=== PATIENT | female | born 1975 | race African-American/Black ===

== ENCOUNTER 2021-05-13 19:11 | Emergency (ER) | payer OTHER ==
[2021-05-13] MEDS ORDERED: ACETAMINOPHEN 500 MG TAB ONE (19:59)
[2021-05-13] MEDS ORDERED: FAMOTIDINE 20 MG TAB ONE (23:15)
[2021-05-13] MEDS ORDERED: AZITHROMYCIN 250 MG TAB ONE (23:15)
--- NOTE | 2021-05-13 23:15 | EDPHYS ---
Physician Documentation [facility] Name: Christine Jones Age: 45 yrs Sex: Female : 1975 Arrival Date: 05/13/2021 Time: 19:14 Bed DIS2 Private MD: ED Physician Marshall Ceron HPI: 05/13 23:08 This 45 yrs old Black Female presents to ER via Ambulatory with complaints of Cough, doyle Headache, Joint Pain. 23:08 The patient or guardian reports cough, difficulty breathing, flu symptoms, arthralgias, doyle low-grade fever, myalgias. Onset: The symptoms/episode began/occurred 2 day(s) ago. Severity of symptoms: At their worst the symptoms were mild, in the emergency department the symptoms are unchanged. Modifying factors: The symptoms are alleviated by nothing, the symptoms are aggravated by nothing. Associated signs and symptoms: The patient has no apparent associated signs or symptoms. The patient has experienced similar episodes in the past, a few times. 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 - Social history:: Smoking status: Patient reports the use of cigarette tobacco products, smokes one pack cigarettes per day. Patient uses alcohol, on a daily basis. ROS: 23:09 Constitutional: Negative for fever, chills, and weight loss, Eyes: Negative for injury, doyle pain, redness, and discharge, ENT: Negative for injury, pain, and discharge, Neck: Negative for injury, pain, and swelling, Abdomen/GI: Negative for abdominal pain, nausea, vomiting, diarrhea, and constipation, Back: Negative for injury and pain, : Negative for injury, bleeding, discharge, and swelling, MS/Extremity: Negative for injury and deformity, Skin: Negative for injury, rash, and discoloration, Neuro: Negative for headache, weakness, numbness, tingling, and seizure, Psych: Negative for depression, anxiety, suicide ideation, homicidal ideation, and hallucinations, Allergy/Immunology: Negative for hives, rash, and allergies, Endocrine: Negative for neck swelling, polydipsia, polyuria, polyphagia, and marked weight changes, Hematologic/Lymphatic: Negative for swollen nodes, abnormal bleeding, and unusual bruising. 23:09 Cardiovascular: Positive for palpitations. 23:09 Respiratory: Positive for cough, "sounds productive". Exam: 23:09 Constitutional: This is a well developed, well nourished patient who is awake, alert, doyle and in no acute distress. Head/Face: Normocephalic, atraumatic. Eyes: Pupils equal round and reactive to light, extra-ocular motions intact. Lids and lashes normal. Conjunctiva and sclera are non-icteric and not injected. Cornea within normal limits. Periorbital areas with no swelling, redness, or edema. ENT: Nares patent. No nasal discharge, no septal abnormalities noted. Tympanic membranes are normal and external auditory canals are clear. Oropharynx with no redness, swelling, or masses, exudates, or evidence of obstruction, uvula midline. Mucous membranes moist. Neck: Trachea midline, no thyromegaly or masses palpated, and no cervical lymphadenopathy. Supple, full range of motion without nuchal rigidity, or vertebral point tenderness. No Meningismus. Chest/axilla: Normal chest wall appearance and motion. Nontender with no deformity. No lesions are appreciated. Abdomen/GI: Soft, non-tender, with normal bowel sounds. No distension or tympany. No guarding or rebound. No evidence of tenderness throughout. Back: No spinal tenderness. No costovertebral tenderness. Full range of motion. Pelvic Exam: Normal external genitalia. Speculum exam with closed cervical os, no discharge or bleeding noted. Bimanual exam with normal adnexa, no adnexal or cervical motion tenderness. Normal uterus. Female : Normal external genitalia. Skin: Warm, dry with normal turgor. Normal color with no rashes, no lesions, and no evidence of cellulitis. MS/ Extremity: Pulses equal, no cyanosis. Neurovascular intact. Full, normal range of motion. Neuro: Awake and alert, GCS 15, oriented to person, place, time, and situation. Cranial nerves II-XII grossly intact. Motor strength 5/5 in all extremities. Sensory grossly intact. Cerebellar exam normal. Normal gait. 23:09 Cardiovascular: Rate: tachycardic, actual rate is 114 bpm, Rhythm: regular, Pulses: Pulses are 4+ in bilateral radial, brachial, femoral, popliteal, posterior tibial and and dorsalis pedis arteries.. Heart sounds: normal, normal S1and S2, no S3 or S4, no murmur, no rub, no gallop, Edema: is not appreciated, JVD: is not appreciated. Vital Signs: 19:54 BP 155 / 84; Pulse 114; Resp 18; Temp 101.7; Weight 74.84 kg; Height 5 ft. 4 in. ld1 (162.56 cm); Pain 3/10; 19:54 Body Mass Index 28.32 (74.84 kg, 162.56 cm) ld1 MDM: 21:37 Patient medically screened. doyle 23:11 Differential diagnosis: viral Infection, bacterial infection, URI, bronchitis, doyle pneumonia UTI. Differential Diagnosis: Bronchitis Influenza Upper Respiratory Infection Sinusitis Pharyngitis Otitis Media Asthma Exacerbation Viral Syndrome Pneumonia Tracheal Injury. Data reviewed: vital signs, nurses notes. 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 05/13 21:26 Order name: SARS-COV-2 RT PCR EDMS Administered Medications: 19:59 Drug: Tylenol 1000 mg Route: PO; ld1 23:17 Drug: Zithromax (azithromycin) 500 mg Route: PO; ld1 23:17 Drug: Pepcid (famotidine) 40 mg Route: PO; ld1 23:17 Drug: Albuterol HFA Inhaler 4 puffs Route: Inhalation; ld1 Disposition Summary: 05/13/21 23:14 Discharge Ordered Location: Home doyle Problem: new doyle Symptoms: have improved doyle Condition: Stable doyle Diagnosis - Coronavirus infection, unspecified doyle - Fever, unspecified doyle - Acute upper respiratory infection, unspecified doyle Followup: doyle - With: Private Physician - When: 2 - 3 days - Reason: Recheck today's complaints, Continuance of care, Re-evaluation by your physician Followup: doyle - With: Lamin Montana MD - When: 2 - 3 days - Reason: Recheck today's complaints, Re-evaluation by your physician Discharge Instructions: - Discharge Summary Sheet [facility] - Fever, Adult doyle - Upper Respiratory Infection, Adult doyle - Cool Mist Vaporizer [facility] - Upper Respiratory Infection, Adult, [id number] [facility] - Cough, Adult [facility] - COVID-19 [facility] - COVID-19 Frequently Asked Questions [facility] - 10 Things You Can Do to Manage Your COVID-19 Symptoms at Home - [facility] - COVID-19: Quarantine vs. Isolation - [facility] - Fever, Adult, [id number] [facility] Forms: - Medication Reconciliation Form [facility] - Thank You Letter [facility] - Antibiotic Education [facility] - Prescription Opioid Use [facility] Prescriptions: - albuterol sulfate 90 mcg/actuation Inhalation HFA aerosol inhaler - inhale 2 puff by INHALATION route every 4-6 hours; 1 Pump; Refills: 0, Product [facility] Selection Permitted - ivermectin 3 mg Oral tablet - take 5 tablet by ORAL route once daily; 15 tablet; Refills: 0, Product [facility] Selection Permitted - Tylenol 325 mg Oral Tablet - take 2 tablets by ORAL route every 6 hours as needed; 1 bottle; Refills: 0, [facility] Product Selection Permitted - Singulair 10 mg Oral Tablet - take 1 tablet by ORAL route At bedtime; 30 tablet; Refills: 0, Product [facility] Selection Permitted - Zithromax 500 mg Oral Tablet - take 1 tablet by ORAL route once daily for 5 days; 5 tablet; Refills: 0, [facility] Product Selection Permitted Signatures: Dispatcher [employer] Marshall Villegas MD MD cha Dibbern, Lauren, RN RN ld1
--- NOTE | 2021-05-13 23:15 | ER ---
Nurse's Notes [facility] Name: Christine Jones Age: 45 yrs Sex: Female : 1975 Arrival Date: 05/13/2021 Time: 19:14 Bed DIS2 Private MD: Diagnosis: Coronavirus infection, unspecified;Fever, unspecified;Acute upper respiratory infection, unspecified Presentation: 05/13 19:54 Chief complaint: Patient states: coughing last night, joints hurting, chills. ld1 Coronavirus screen: Vaccine status: Patient reports receiving the 2nd dose of the covid vaccine. Client denies travel out of the [place] in the last 14 days. Ebola Screen: Patient negative for fever greater than or equal to 101.5 degrees Fahrenheit, and additional compatible Ebola Virus Disease symptoms Patient denies exposure to infectious person. Patient denies travel to an Ebola-affected area in the 21 days before illness onset. Initial Sepsis Screen: Does the patient meet any 2 criteria? No. Patient's initial sepsis screen is negative. Does the patient have a suspected source of infection? No. Patient's initial sepsis screen is negative. Risk Assessment: Do you want to hurt yourself or someone else? Patient reports no desire to harm self or others. Onset of symptoms was May 13, 2021. 19:54 Method Of Arrival: Ambulatory ld1 19:54 Acuity: AVEL 3 ld1 Triage Assessment: 19:56 Headache History: The patient has had previous headaches and this one is similar to ld1 previous episodes. General: Appears in no apparent distress. uncomfortable, well groomed, well developed, well nourished, Behavior is calm, cooperative, appropriate for age. Pain: Denies pain. Pain currently is 8 out of 10 on a pain scale. Pain: Pain began suddenly, Also complains of no other associated symptoms. Neuro: No deficits noted. 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 - Social history:: Smoking status: Patient reports the use of cigarette tobacco products, smokes one pack cigarettes per day. Patient uses alcohol, on a daily basis. Screenin:41 Abuse screen: Denies threats or abuse. Denies injuries from another. Nutritional ld1 screening: No deficits noted. Tuberculosis screening: No symptoms or risk factors identified. Fall Risk None identified. Assessment: 21:41 Reassessment: See triage assessment. Pain: Denies pain. ld1 Vital Signs: 19:54 BP 155 / 84; Pulse 114; Resp 18; Temp 101.7; Weight 74.84 kg; Height 5 ft. 4 in. ld1 (162.56 cm); Pain 3/10; 19:54 Body Mass Index 28.32 (74.84 kg, 162.56 cm) ld1 ED Course: 19:14 Patient arrived in ED. as 19:56 Triage completed. ld1 19:56 Arm band placed on right wrist. ld1 21:37 Marshall Ceron MD is Attending Physician. [facility] 21:39 SARS-COV-2 RT PCR Sent. tw5 21:41 Roshni Sy, JERRI is Primary Nurse. ld1 21:41 Patient has correct armband on for positive identification. Call light in reach. Pulse ld1 ox on. NIBP on. Door closed. Noise minimized. 21:41 No provider procedures requiring assistance completed. ld1 22:44 Notified ED physician of a critical lab result(s). Covid +. tw5 23:13 Lamin Montana MD is Referral Physician. [facility] 23:30 Patient did not have IV access during this emergency room visit. ld1 Administered Medications: 19:59 Drug: Tylenol 1000 mg Route: PO; ld1 23:17 Drug: Zithromax (azithromycin) 500 mg Route: PO; ld1 23:17 Drug: Pepcid (famotidine) 40 mg Route: PO; ld1 23:17 Drug: Albuterol HFA Inhaler 4 puffs Route: Inhalation; ld1 Outcome: 23:14 Discharge ordered by . [facility] 23:30 Discharged to home ambulatory. ld1 23:30 Condition: stable 23:30 Discharge instructions given to patient, Instructed on discharge instructions, follow up and referral plans. medication usage, Demonstrated understanding of instructions, follow-up care, medications. 23:30 Patient left the ED. ld1 Signatures: Marshall Ceron MD MD cha Martinez, Amelia as Dibbern, Lauren, RN RN ld1 Emely Ghotra tw5
[2021-05-13] MEDS ORDERED: ALBUTEROL INHALER 60 PUFF/8 GM IH ONE (23:16)
[2021-05-13 23:35] VITALS: BP 155/84; TEMP 101.7
== END 2021-05-13 23:30 | disposition home or self-care (01) ==
LOC: ER 19:11
DX: U07.1 COVID-19 (principal); J06.9 Acute upper respiratory infection, unspecified; F17.210 Nicotine dependence, cigarettes, uncomplicated
CPT/HCPCS: 99284; U0003